=== PATIENT | male | born 1985 | race Caucasian/White ===

== ENCOUNTER 2017-03-05 18:12 | Emergency (ER) | payer SELFPAY ==
[~2017-03-05] VITALS: Ht 188 cm; Wt 90.0 kg
[2017-03-05] MEDS ORDERED: LORazepam 2 MG TABLET PO ONE (18:45)
[2017-03-05 19:50] VITALS: BP 134/92
== END 2017-03-05 20:02 | disposition home or self-care (01) ==
LOC: EMS 18:13
DX: F41.9 Anxiety disorder, unspecified (principal)
CPT/HCPCS: 99284